=== PATIENT | female | born 1985 | race Caucasian/White ===

== ENCOUNTER 2016-04-05 21:42 | Emergency (ER) | payer OTHER ==
[~2016-04-05] VITALS: Ht 149.8 cm; Wt 71.7 kg
[~2016-04-05 21:42] MED LIST: AMBIEN10 M1 PO; AMOXICILLIN500 M2 PO; AMOXIL500 MG PO; BACTRIM DS 8001 TA1 PO; BACTROBAN CREAM15 GM PO; BENTYL10 MG PO; BENTYL20 MG PO; BUPRENORPHINE HY8 MG SL; Bactrim Ds 8001 TAB PO; CIPRO250 MG PO; CIPRO500 MG PO; CIPROFLOXACIN500 MG PO; CLARITIN10 MG PO; CLINDAMYCIN150 MG PO; Carafate1 GM PO; DURICEF500 MG PO; FIORICET 325 MG1 TAB PO; FLEXERIL5 MG PO; HYDROCODONE BIT1 T11 PO; HYDROXYZINE PAM50 MG PO; IMODIUM A-D2 MG PO; KLONOPIN0.5 MG PO; LEVAQUIN750 MG PO; LISINOPRIL2.5 MG PO; LOMOTIL 0.025 M1 TA1 PO; MACROBID100 M1 PO; METFORMIN500 MG PO; MOTRIN800 MG PO; NAPROSYN500 MG PO; ONDANSETRON4 MG PO; PHENERGAN25 M1 PO; PRILOSEC10 MG PO; PRILOSEC20 MG PO; PRINIVIL10 MG PO; PROTONIX40 MG PO; REGLAN5 MG PO; ROBITUSSIN-DM 110 ML PO; SEROQUEL XR300 MG PO; SINEMET 25-100M1 TAB PO; SPRINTEC 35 MCG1 TA1 PO; SUBUTEX8 M1 SL; TORADOL10 MG PO; TRAMADOL HCL50 MG PO; TRIMOX500 MG PO; TYLENOL650 M1; ULTRAM50 MG PO; VICODIN 5/500 505 MG PO; VISTARIL25 M1 PO; ZANTAC150 MG PO; ZITHROMAX Z PA250 MG PO; ZOFRAN ODT4 MG SL; ZOLOFT100 MG PO; ZOLOFT50 MG PO; Zofran4 MG PO
[2016-04-05] MEDS ORDERED: SUBOXONE 12 MG1 EACH SL (21:56)
[2016-04-05 22:56] LABS: BILIRUBIN NEGATIVE (NEGATIVE); BLOOD 3+ (NEGATIVE); CLARITY CLOUDY (CLEAR); GLUCOSE NEGATIVE (NEGATIVE); KETONE TRACE (NEGATIVE); LEUKO ESTERASE NEGATIVE (NEGATIVE); NITRITE NEGATIVE (NEGATIVE); PH 5.5 (5.0-9.0); PROTEIN 2+ (NEGATIVE); SPECIFIC GRAVITY 1.025 (1.005-1.030)
[2016-04-05 23:03] LABS: BACTERIA 4+
[2016-04-05 23:04] LABS: RBC TNTC rbc/hpf (0-2); URINE REFLEX COMMENT YES (NO)
[2016-04-05 23:05] LABS: BASO # 0.1 10*3/uL (0.0-0.1); BASO % 0.7 % (0.0-1.0); EOS # 0.4 10*3/uL (0.0-0.4); EOS % 4.7 % (1.0-4.0); HEMATOCRIT 38.6 % (37.0-47.0); HEMOGLOBIN 12.5 g/dl (12.0-16.0); LYMPH # 3.6 10*3/uL (1.3-4.4); LYMPH % 41.8 % (27.0-41.0); MEAN CORPUSCULAR HGB 27.5 pg (27.0-31.0); MEAN CORPUSCULAR HGB CONC 32.4 g/dl (33.0-37.0); MEAN PLATELET VOLUME 10.3 fl (9.6-12.3); MONO # 0.6 10*3/uL (0.1-1.0); MONO % 6.5 % (3.0-9.0); NEUT # 3.9 10*3/uL (2.3-7.9); NEUT % 46.2 % (47.0-73.0); PLATELET COUNT AUTOMATED 277 10*3/uL (130-400); RED BLOOD COUNT 4.54 10*6/uL (4.10-5.10); RED CELL DISTRI WIDTH 14.6 % (0-14.5); WHITE BLOOD COUNT 8.5 10*3/uL (4.8-10.8)
[2016-04-05 23:05] LABS: COLOR RED (YELLOW)
[2016-04-05 23:21] LABS: BUN 11 mg/dl (7-24); CARBON DIOXIDE 24 mmol/L (21-32); CHLORIDE 108 mmol/L (98-107); EST GLOM FILT AFRICAN AMERICAN > 60 ml/min; GLUCOSE 106 mg/dL (65-99); POTASSIUM 3.7 mmol/L (3.5-5.1); SODIUM 141 mmol/L (136-145)
[2016-04-06] MEDS ORDERED: NORCO 5-325 TA1 EACH PO (01:55)
[2016-04-06] MEDS ORDERED: OMNICEF300 MG PO (01:55)
== END 2016-04-06 02:00 | disposition home or self-care (01) ==
LOC: ED 21:42
PROVIDERS: Emergency Medicine Emergency Medical Services
DX: N93.8 Other specified abnormal uterine and vaginal bleeding (principal); R82.71 Bacteriuria; F17.200 Nicotine dependence, unspecified, uncomplicated; Z88.8 Allergy status to other drugs, medicaments and biological substances; Z91.041 Radiographic dye allergy status

== ENCOUNTER → 2016-04-07 | Outpatient (CLI) | payer OTHER ==
[~2016-04-07] MED LIST changes: +NORCO 5-325 TA1 EACH PO; +OMNICEF300 MG PO; +SUBOXONE 12 MG1 EACH SL
== END | disposition home or self-care (01) ==
LOC: US 14:00
DX: R10.2 Pelvic and perineal pain (principal)

== ENCOUNTER → 2016-08-25 | Outpatient (CLI) | payer OTHER | END | disposition home or self-care (01) | LOC: MAMMO 12:55 | DX: N63 Unspecified lump in breast (principal) ==

== ENCOUNTER 2017-03-11 17:24 | Emergency (ER) | payer OTHER ==
[~2017-03-11] VITALS: Wt 77.1 kg
[2017-03-11] MEDS ORDERED: CELEXA10 MG PO (17:29)
[2017-03-11 17:44] LABS: BILIRUBIN NEGATIVE (NEGATIVE); BLOOD 3+ (NEGATIVE); CLARITY CLOUDY (CLEAR); COLOR YELLOW (YELLOW); GLUCOSE NEGATIVE (NEGATIVE); KETONE NEGATIVE (NEGATIVE); LEUKO ESTERASE 2+ (NEGATIVE); NITRITE POSITIVE (NEGATIVE); PH 5.5 (5.0-9.0); SPECIFIC GRAVITY 1.025 (1.005-1.030); UROBILINOGEN 0.2 E.U./dl (0.2-1.0)
[2017-03-11 17:50] LABS: BACTERIA 3+; EPITHELIAL CELLS 21-30; RBC TNTC rbc/hpf (0-2); WBC TNTC wbc/hpf (0-5)
[2017-03-11] MEDS ORDERED: SEPTDS PO (17:52)
[2017-03-11] MEDS ORDERED: PYRIDIUM200 M1 PO (17:52)
== END 2017-03-11 17:53 | disposition home or self-care (01) ==
LOC: ED 17:24
PROVIDERS: Nurse Practitioner Family
DX: N39.0 Urinary tract infection, site not specified (principal); R03.0 Elevated blood-pressure reading, without diagnosis of hypertension; F17.200 Nicotine dependence, unspecified, uncomplicated; F11.10 Opioid abuse, uncomplicated; Z98.890 Other specified postprocedural states; Z79.899 Other long term (current) drug therapy; Z88.8 Allergy status to other drugs, medicaments and biological substances; Z91.041 Radiographic dye allergy status; Z88.6 Allergy status to analgesic agent

== ENCOUNTER 2018-02-28 18:24 | Emergency (ER) | payer SELFPAY ==
[~2018-02-28] VITALS: Wt 81.6 kg
[~2018-02-28 18:24] MED LIST changes: +CELEXA10 MG PO; +PYRIDIUM200 M1 PO; +SEPTDS PO
[2018-02-28] MEDS ORDERED: REGLAN10 M1 PO (18:56)
== END 2018-02-28 19:00 | disposition home or self-care (01) ==
LOC: ED 18:24
DX: Z32.01 Encounter for pregnancy test, result positive (principal); Z88.8 Allergy status to other drugs, medicaments and biological substances; Z91.041 Radiographic dye allergy status; Z79.2 Long term (current) use of antibiotics; Z79.899 Other long term (current) drug therapy

== ENCOUNTER → 2018-04-12 | Outpatient (CLI) | payer OTHER ==
[~2018-04-12] MED LIST changes: +REGLAN10 M1 PO
[2018-04-12 14:59] LABS: BASO % 0.3 % (0.0-1.0); EOS # 0.3 10*3/uL (0.0-0.4); EOS % 3.1 % (1.0-4.0); HEMATOCRIT 35.8 % (37.0-47.0); HEMOGLOBIN 12.2 g/dl (12.0-16.0); LYMPH # 2.5 10*3/uL (1.3-4.4); LYMPH % 29.1 % (27.0-41.0); MEAN CELL VOLUME 83.6 fl (81.0-99.0); MEAN CORPUSCULAR HGB 28.5 pg (27.0-31.0); MEAN CORPUSCULAR HGB CONC 34.1 g/dl (33.0-37.0); MEAN PLATELET VOLUME 9.7 fl (9.6-12.3); MONO # 0.6 10*3/uL (0.1-1.0); MONO % 6.6 % (3.0-9.0); NEUT # 5.2 10*3/uL (2.3-7.9); NEUT % 60.4 % (47.0-73.0); PLATELET COUNT AUTOMATED 242 10*3/uL (130-400); RED BLOOD COUNT 4.28 10*6/uL (4.10-5.10); RED CELL DISTRI WIDTH 13.9 % (0-14.5); WHITE BLOOD COUNT 8.7 10*3/uL (4.8-10.8)
[2018-04-12 15:07] LABS: INTERNATIONAL NORM RATIO 0.9 (2.0-3.5)
[2018-04-12 15:10] LABS: BILIRUBIN NEGATIVE (NEGATIVE); BLOOD TRACE-INTACT (NEGATIVE); CLARITY CLEAR (CLEAR); COLOR YELLOW (YELLOW); GLUCOSE NEGATIVE (NEGATIVE); KETONE NEGATIVE (NEGATIVE); LEUKO ESTERASE NEGATIVE (NEGATIVE); NITRITE NEGATIVE (NEGATIVE); SPECIFIC GRAVITY 1.025 (1.005-1.030); UROBILINOGEN 0.2 E.U./dl (0.2-1.0)
[2018-04-12 15:19] LABS: URINE AMPHETAMINES < 1000 (1000ng/ml); URINE BARBITURATES < 200 (200ng/ml); URINE BENZODIAZEPINES < 200 (200ng/ml); URINE CANNABINOIDS (THC) > 50 (50ng/ml); URINE COCAINE < 300 (300ng/ml); URINE METHADONE < 300 (300ng/ml); URINE OPIATES > 300 (300ng/ml)
[2018-04-12 15:20] LABS: URINE PHENCYCLIDINE < 25 (25ng/ml)
[2018-04-12 15:28] LABS: ALBUMIN 2.8 gm/dl (3.1-4.5); ALKALINE PHOSPHATASE 75 U/L (45-117); BUN 4 mg/dl (7-24); CHLORIDE 108 mmol/L (98-107); CREATININE 0.45 mg/dL (0.55-1.02); POTASSIUM 3.6 mmol/L (3.5-5.1); SGOT/AST 11 IU/L (3-35); SODIUM 139 mmol/L (136-145); TOTAL PROTEIN 6.8 gm/dL (6.4-8.2); URIC ACID 1.9 mg/dL (2.6-6.0)
[2018-04-12 15:29] LABS: ACT PARTIAL THROMBO TIME 28.3 SECONDS (20.8-31.5)
[2018-04-12 15:30] LABS: SGPT/ALT 12 U/L (12-78)
[2018-04-12 15:31] LABS: BACTERIA 1+; EPITHELIAL CELLS TNTC; MUCOUS TRACE; RBC 0-2 rbc/hpf (0-2); WBC 0-2 wbc/hpf (0-5)
== END | disposition home or self-care (01) ==
LOC: US 13:30 → LAB 13:39
PROVIDERS: Nurse Practitioner Women's Health
DX: Z34.02 Encounter for supervision of normal first pregnancy, second trimester (principal); Z87.59 Personal history of other complications of pregnancy, childbirth and the puerperium

== ENCOUNTER 2020-09-02 18:37 | Emergency (ER) | payer OTHER ==
[~2020-09-02] VITALS: Ht 149.8 cm; Wt 79.4 kg
[2020-09-02] MEDS ORDERED: Motrin,Rufen800 MG PO (19:17)
[2020-09-02] MEDS ORDERED: CLINDAMYCIN HC300 MG PO (19:17)
== END 2020-09-02 19:42 | disposition home or self-care (01) ==
LOC: ED 18:37
DX: K04.7 Periapical abscess without sinus (principal); Z88.8 Allergy status to other drugs, medicaments and biological substances; Z91.041 Radiographic dye allergy status; Z79.899 Other long term (current) drug therapy; Z98.890 Other specified postprocedural states

== ENCOUNTER 2020-10-18 18:53 | Emergency (ER) | payer OTHER ==
[~2020-10-18] VITALS: Ht 149.8 cm; Wt 77.1 kg
[~2020-10-18 18:53] MED LIST changes: +CLINDAMYCIN HC300 MG PO; +Motrin,Rufen800 MG PO
[2020-10-19] MEDS ORDERED: KETOROLAC10 MG PO ×3 (00:51→14:36)
[2020-10-19] MEDS ORDERED: AUGMENTIN 875875 MG PO ×3 (00:51→14:36)
== END 2020-10-19 03:09 | disposition home or self-care (01) ==
LOC: ED 18:53
DX: K04.7 Periapical abscess without sinus (principal); Z79.899 Other long term (current) drug therapy

== ENCOUNTER 2021-04-15 22:50 | Emergency (ER) | payer OTHER ==
[~2021-04-15] VITALS: Ht 149.8 cm; Wt 81.6 kg
[~2021-04-15 22:50] MED LIST changes: +AUGMENTIN 875875 MG PO; +KETOROLAC10 MG PO
[2021-04-16] MEDS ORDERED: AMOXICILLIN500 M2 PO (00:03)
== END 2021-04-16 00:20 | disposition home or self-care (01) ==
LOC: ED 22:50
DX: K04.7 Periapical abscess without sinus (principal); Z88.8 Allergy status to other drugs, medicaments and biological substances; Z79.899 Other long term (current) drug therapy; Z98.890 Other specified postprocedural states

== ENCOUNTER 2022-04-08 14:30 | Emergency (ER) | payer OTHER ==
[~2022-04-08] VITALS: Ht 149.8 cm; Wt 77.1 kg
[2022-04-08 16:27] LABS: BASO # 0.1 10*3/uL (0.0-0.1); BASO % 0.6 % (0.0-1.0); EOS # 0.2 10*3/uL (0.0-0.4); HEMATOCRIT 44.9 % (37.0-47.0); LYMPH # 2.7 10*3/uL (1.3-4.4); LYMPH % 32.7 % (27.0-41.0); MEAN CELL VOLUME 86.5 fl (81.0-99.0); MEAN CORPUSCULAR HGB 28.7 pg (27.0-31.0); MEAN CORPUSCULAR HGB CONC 33.2 g/dl (33.0-37.0); MEAN PLATELET VOLUME 9.4 fl (9.6-12.3); MONO # 0.6 10*3/uL (0.1-1.0); MONO % 7.6 % (3.0-9.0); NEUT # 4.5 10*3/uL (2.3-7.9); NEUT % 55.7 % (47.0-73.0); PLATELET COUNT AUTOMATED 337 10*3/uL (130-400); RED BLOOD COUNT 5.19 10*6/uL (4.10-5.10); RED CELL DISTRI WIDTH 13.5 % (0-14.5); WHITE BLOOD COUNT 8.1 10*3/uL (4.8-10.8)
[2022-04-08 16:43] LABS: ALKALINE PHOSPHATASE 82 U/L (46-116); BETA-HCG, QUANT < 3.0 mIU/mL (0-10); BUN 6 mg/dl (9-23); CHLORIDE 104 mmol/L (98-107); SGPT/ALT 8 U/L (10-49); TOTAL PROTEIN 7.3 gm/dL (6.0-8.0)
== END 2022-04-08 18:00 | disposition home or self-care (01) ==
LOC: ED 14:30
PROVIDERS: Physician Assistant
DX: N93.9 Abnormal uterine and vaginal bleeding, unspecified (principal)

== ENCOUNTER 2022-06-08 13:11 | Emergency (ER) | payer OTHER ==
[~2022-06-08] VITALS: Ht 149.8 cm; Wt 75.3 kg
[2022-06-08 14:32] LABS: BILIRUBIN Negative (Negative); BLOOD 2+ (Negative); CLARITY Cloudy (Clear); COLOR Dark Yellow (Yellow); GLUCOSE Negative (Negative); KETONE Trace (Negative); LEUKO ESTERASE 1+ (Negative); NITRITE Negative (Negative)
[2022-06-08 14:48] LABS: EPITHELIAL CELLS 16-20; RBC 21-30 rbc/hpf (0-2)
[2022-06-08 14:49] LABS: BACTERIA 1+; MUCOUS 1+
[2022-06-08 15:17] LABS: BASO # 0.1 10*3/uL (0.0-0.1); BASO % 0.7 % (0.0-1.0); EOS # 0.2 10*3/uL (0.0-0.4); EOS % 2.4 % (1.0-4.0); HEMATOCRIT 42.2 % (37.0-47.0); LYMPH # 2.3 10*3/uL (1.3-4.4); LYMPH % 29.9 % (27.0-41.0); MEAN CELL VOLUME 85.8 fl (81.0-99.0); MEAN CORPUSCULAR HGB 28.9 pg (27.0-31.0); MEAN CORPUSCULAR HGB CONC 33.6 g/dl (33.0-37.0); MEAN PLATELET VOLUME 9.7 fl (9.6-12.3); MONO # 0.5 10*3/uL (0.1-1.0); MONO % 7.1 % (3.0-9.0); NEUT # 4.6 10*3/uL (2.3-7.9); NEUT % 59.6 % (47.0-73.0); PLATELET COUNT AUTOMATED 275 10*3/uL (130-400); RED BLOOD COUNT 4.92 10*6/uL (4.10-5.10); RED CELL DISTRI WIDTH 13.6 % (0-14.5); WHITE BLOOD COUNT 7.6 10*3/uL (4.8-10.8)
[2022-06-08 15:44] LABS: ALKALINE PHOSPHATASE 73 U/L (46-116); BUN 6 mg/dl (9-23); CHLORIDE 105 mmol/L (98-107); POTASSIUM 3.7 mmol/L (3.4-5.1); SGPT/ALT 9 U/L (10-49); TOTAL PROTEIN 6.9 gm/dL (6.0-8.0)
[2022-06-08 15:48] LABS: B-hCG (QUALITATIVE) POSITIVE (NEGATIVE)
== END 2022-06-08 17:44 | disposition home or self-care (01) ==
LOC: ED 13:11
PROVIDERS: Nurse Practitioner Family
DX: O46.8X1 Other antepartum hemorrhage, first trimester (principal); O99.611 Diseases of the digestive system complicating pregnancy, first trimester; O99.341 Other mental disorders complicating pregnancy, first trimester; K21.9 Gastro-esophageal reflux disease without esophagitis; F32.A Depression, unspecified; F41.9 Anxiety disorder, unspecified; Z88.8 Allergy status to other drugs, medicaments and biological substances; Z91.041 Radiographic dye allergy status; Z98.890 Other specified postprocedural states; Z79.899 Other long term (current) drug therapy; Z3A.09 9 weeks gestation of pregnancy

== ENCOUNTER → 2024-12-31 | Outpatient (CLI) | payer OTHER ==
[~2024-12-31] MED LIST changes: +AMLODIPINE BESYL5 MG PO; +BUPRENORPHINE SQ; +LEVOFLOXACIN750 M2 PO; +MUCUS RELIEF E600 MG PO; +PREDNISONE10 MG PO
[2024-12-31 17:05] LABS: BASO # 0.0 10*3/uL (0.0-0.1); BASO % 0.7 % (0.0-1.0); EOS # 0.2 10*3/uL (0.0-0.4); EOS % 3.9 % (1.0-4.0); MEAN CELL VOLUME 88.2 fl (81.0-99.0); MEAN CORPUSCULAR HGB 28.9 pg (27.0-31.0); MEAN PLATELET VOLUME 10.0 fl (9.6-12.3); MONO # 0.4 10*3/uL (0.1-1.0); MONO % 7.1 % (3.0-9.0); NEUT # 2.7 10*3/uL (2.3-7.9); NEUT % 49.6 % (47.0-73.0); NUCLEATED RED BLOOD CELL 0.0 % (0.0-0.0); NUCLEATED RED BLOOD CELL 0.0 10*3/uL (0.0-0.0); PLATELET COUNT AUTOMATED 254 10*3/uL (130-400); RED CELL DISTRI WIDTH 12.5 % (0-14.5)
[2024-12-31 17:28] LABS: BUN 5 mg/dl (9-23); SGPT/ALT 8 U/L (5-49)
== END | disposition home or self-care (01) ==
LOC: LAB 16:22
PROVIDERS: ATTEND Nurse Practitioner Primary Care
DX: R00.2 Palpitations (principal); I10 Essential (primary) hypertension